=== PATIENT | female | born 1965 | race Caucasian/White ===

== ENCOUNTER 2024-12-26 09:25 | Emergency (ER) | payer OTHER, SELFPAY ==
[2024-12-26] VITALS (7 sets, daily range): BP systolic 130–181; BP diastolic 78–91; PULSE 71–84; RESP 16–19; TEMP 36.8; O2SAT 98–100
--- NOTE | ~2024-12-26 | CT_ITS ---
CT HEAD NON-CONTRAST Clinical History: dizziness Comparison: None Technique: Unenhanced axial images skull base to vertex Coronal, sagittal reformats CT images acquired with automatic exposure control for dose reduction DLP: 605 mGy-cm Findings: Sulci, ventricles: Unremarkable. No intracerebral hemorrhage. No evidence acute territorial infarct. No mass effect, midline shift. Bony calvarium intact. Visualized paranasal sinuses: Clear. Mastoid air cells: Clear. IMPRESSION: 1. No acute intracranial findings. Reviewed, dictated and finalized at location R.
--- NOTE | ~2024-12-26 | XR_ITS ---
Examination: XR chest 1V portable Clinical History: neuro Comparison: None Technique: Portable AP Findings: Heart size normal. Lungs clear. No acute bony abnormality. IMPRESSION: 1. No acute cardiopulmonary findings given portable technique. Reviewed, dictated and finalized at location R.
--- NOTE | 2024-12-26 09:31 | ECG_ITS ---
Test Date: 2024-12-26 09:37:14 Measurements Intervals [place] Rate: 80 P: 68 CT: 143 QRS: 52 QRSD: 89 T: 30 QT: 382 QTc: 441 Interpretive Statements SINUS RHYTHM NORMAL ECG No previous ECG available for comparison Electronically Signed On 12-26-2024 13:58:47 CDT by Samuel Barkley D.O.
[2024-12-26 09:42] LABS: Hematocrit 39.7 % (37.0-47.0); Hemoglobin 13.2 g/dL (12.0-15.0); Immature Granulocyte Percent A 0.5 % (0-0.5); Lymphocytes Absolute Auto 2.15 K/mm3 (0.9-3.2); Mean Corpuscular HGB Conc 33.2 g/dl (32-36); Mean Corpuscular Hemoglobin 30.8 pg (26-34); Mean Corpuscular Volume 92.5 fl (80-100); Nucleated Red Blood Cells Absolute Auto 0.000 K/mm3 (0.0-0.012); Nucleated Red Blood Cells Perc 0.0 % (0.0-0.2); Platelet Count Result 205 k/mm3 (150-375); Red Blood Count 4.29 M/mm3 (4.2-5.4); White Blood Count 6.3 K/mm3 (4.5-10.0)
[2024-12-26 09:54] LABS: INR 0.9; Partial Thromboplastin Time 24.0 Seconds (22.3-36.8); Prothrombin Time 11.9 Seconds (11.1-14.7)
--- OUTSIDE RECORDS SUMMARY | 2024-12-26 10:04 | XMS_ITS | Encounter Summary ---
Author Organization [facility] Address [facility] [place] [address] Care Team Providers Care Scrape Gatherer Name Role Phone Carlos Chahal MD Primary Care Prov ider Encounter Details Date Type Department Care Team (Late st Contact Info) Description 11/05/2023 MyChart Message Enc [facility] Family Medicine - [address], [address] [place] [phone] Carlos Chahal MD [address] [place] [address], Jose Miguel [address] [place] [id number] Test Results Social History Tobacco Use Types Packs/Day Years Used Date Smoking Tobacco: Former Cigarettes Smokeless Tobacco: Never Comments:I have never been a ddicted. 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 Question Answer Date of Assessment Author Status Little interest or pleasure in doing things Not at all 11/05/2023 1:33 PM Shira Luu MA Active Feeling down, depressed, or hopeless Not at all 11/05/2023 1:33 PM Fidelia Luu MA Active Patient Health Questionnaire-2 Score 0 11/05/2023 1:33 PM Juan Luu MA Active * Question Answer Date of Assessment Author Status Trouble falling or staying asleep, or sleeping too much Not at all 11/05/2023 1:33 PM Shira Luu MA Active Feeling tired or having little energy Not at all 11/05/2023 1:33 PM Shira Luu MA Active Poor appetite or overeating Not at all 11/05/2023 1:33 PM Shira Luu MA Active Feeling bad about yourself - or that you are a failure or have let yourself or your family down Not at all 11/05/2023 1:33 PM Shiar Luu MA Active Trouble concentrating on things, such as reading the newspaper or watching television Not at all 11/05/2023 1:33 PM Shira Luu MA Active Moving or speaking so slowly that other people could have noticed? Or the opposite - being so fidgety or restless that you have been moving around a lot more than usual. Not at all 11/05/2023 1:33 PM Shira Luu MA Active Thoughts that you would be better off or hurting yourself in some way Not at all 11/05/2023 1:33 PM Shira Luu MA Active Patient Health Questionnaire-9 Score 0 11/05/2023 1:33 PM Juan Luu MA Active * If you checked off any problems on this questionnaire so far, Question Answer Date of Assessment Author Status How difficult have these problems made it for you to do your work, take care of things at home, or get along with other people? Not difficult at all 11/05/2023 1:33 PM Emily Luu MA Active * Over the last 2 weeks, how often have you been bothered by any of the following problems? Question Answer Date of Assessment Author Status Feeling nervous, anxious, or on edge 0 11/05/2023 1:34 PM CDT Emily Vega MA Active Not being able to stop or control worrying 0 11/05/2023 1:34 PM CDT Emily Vega MA Active Worrying too much about different things 0 11/05/2023 1:34 PM CDT Emily Vega MA Active Trouble relaxing 0 11/05/2023 1:34 PM CDT Emily Vega MA Active Being so restless that it is hard to sit still 0 11/05/2023 1:34 PM CDT Shira Vega MA Active Becoming easily annoyed or irritable 0 11/05/2023 1:34 PM CDT Emily Vega MA Active Feeling afraid as if something awful might happen 0 11/05/2023 1:34 PM CDT Emily Vega MA Active AGUILAR-7 Total Score 0 11/05/2023 1:34 PM CDT Emily Rutherford MA Active documented as of this encounter Progress Notes * Carlos OLSON MD - 11/06/2023 9:38 AM CDT Thanks for looking into that for me! The levels are certainly elevated, but still not at a point where we would start medications at this time. There are other ways to help improve those numbers, such as diet, exercise, and weight loss. Which we discussed at the last appointment. If you have any other questions, please feel free to schedule another appointment. documented in this encounter Plan of Treatment Not on file documented as of this encounter Visit Diagnoses Not on filedocumented in this encounter Additional Health Concerns Assessment Noted Time PHQ-9 Depression Total Score: 0 11/05/19 24 1:33 PM CDT documented as of this encounter Care Teams Scrape Gatherer Relationship Specialty Start Date End Date Luis OLSON Carlos Malagon MD [address] [place] [address], [place] [id number] PCP - General FAMILY PRACTICE 11/05/23 documented as of this encounter
--- OUTSIDE RECORDS SUMMARY | 2024-12-26 10:05 | XMS_ITS | Encounter Summary ---
Author Organization [facility] Address [facility] [place] [address] Care Team Providers Care Inside Sales Coordinator Name Role Phone Carlos Chahal MD Primary Care Prov ider Encounter Details Date Type Department Care Team (Late st Contact Info) Description 04/23/2024 [place] Message Enc [facility] Family Medicine - [address], [address] [place] [phone] Carlos Chahal MD [address] [place] [address], Jose Miguel [address] [place] [phone] Probiotics Social History Tobacco Use Types Packs/Day Years Used Date Smoking Tobacco: Former Cigarettes Passive Smoke Exposure: Past Smokeless Tobacco: Never Comments:I have never been a ddicted. 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 Legal Sex Female 2:03 PM CDT Gender Identity Not on file Sexual Orientation Not on file documented as of this encounter Plan of Treatment Not on file documented as of this encounter Visit Diagnoses Not on filedocumented in this encounter Additional Health Concerns Assessment Noted Time PHQ-9 Depression Total Score: 0 04/05/19 25 7:51 AM CORONER FORENSIC TECHNICIAN documented as of this encounter Care Teams Inside Sales Coordinator Relationship Specialty Start Date End Date Luis VII, Carlos Malagon MD [address] [place] [address] PCP - General FAMILY PRACTICE 11/05/23 documented as of this encounter
--- OUTSIDE RECORDS SUMMARY | 2024-12-26 10:05 | XMS_ITS | Clinical Summary ---
Author Organization [facility] Address [address] [place] [address] Care Team Providers Care Hand Shoes Sewer Name Role Phone Roldan Mosher MD Primary Care Provider + Allergies Active Allergy Reactions Criticality Noted Date Comments Penicillins Angioedema High Pcmpkuw-Hun-Nyb Reductase Inhibitors Muscle pain Medium Medications citalopram (CeleXA) 40 mg tablet Take 1 tablet (40 mg total) by mouth daily 90 tablet 3 1 Active Additional Information Patient not taking.Reported on 09/04/2022 lisinopriL (PRINIVIL,ZESTR IL) 10 mg tablet Take 1 tablet (10 mg total) by mouth daily 90 tablet 3 1 Active valACYclovir (Valtrex) 500 mg tablet Take 1 tablet (500 mg total) by mouth daily 90 tablet 3 1 Active promethazine (PHENERGAN) 25 mg tablet Take 1 tablet (25 mg total) by mouth every 6 (six) hours as needed for nausea or vomiting 15 tablet 1 Active Additional Information Patient not taking.Reported on 09/04/2022 omeprazole (PriLOSEC) 40 mg capsule Take 1 capsule (40 mg total) by mouth daily 30 capsule 11 1 Active Additional Information Patient not taking.Reported on 09/04/2022 buPROPion XL (WELLBUTRIN XL) 150 mg 24 hr tablet Take 1 tablet (150 mg total) by mouth daily 3 Active doxycycline hyclate 100 mg capsule TAKE 1 CAPSULE BY MOUTH TWICE DAILY for 7 days 3 Active Active Problems Problem Noted Date Diagnosed Date Calculus of gallbladder with out cholecystitis without obstruction 05/11/2020 Assessment & Plan (05/11/2020 11:59 AM DESIGN SALES CONSULTANT): Will check EGD and then likely send to surgery Gastroesophageal reflux disease without esophagi tis 05/11/2020 Assessment & Plan (05/11/2020 12:00 PM DESIGN SALES CONSULTANT): Will have egd, start omeprazole. BMI 29.0-29.9,adult 12/07/2019 Assessment & Plan (04/19/2020 9:33 AM DESIGN SALES CONSULTANT): BMI is improving with lifestyle modifications At high risk for breast cancer 12/07/2019 Dense breast tissue on mammogram 12/07/2019 Postmenopausal 12/07/2019 Obesity (BMI 30-39.9) 05/06/2019 Assessment & Plan (05/06/2019 2:10 PM DESIGN SALES CONSULTANT): BMI Follow-up includes: not focus of today's visit; not discussed. Other chest pain 01/18/2019 Assessment & Plan (01/18/2019 9:45 AM DESIGN SALES CONSULTANT): Finish PPI, call if any sympotms. Musculoskeletal neck pain 06/08/2018 Assessment & Plan (06/08/2018 9:05 AM CDT): Steroid burst and taper, off work 2 days, call if not improving Annual physical exam 04/27/2018 Assessment & Plan (04/19/2020 9:29 AM DESIGN SALES CONSULTANT): Normal exam today Continue all medications as prescribed Labs pending Tdap updated Will reassess in one year Assessment & Plan (04/27/2018 3:39 PM DESIGN SALES CONSULTANT): Without abnormal findings Continue all medications as prescribed Return in one year and as needed Panic disorder without agoraphobia 05/15/2016 Overview (07/26/2016): Panic disorder [episodic paroxysmal anxiety] without agoraphobia Genital herpes simplex 05/15/2016 Overview (07/26/2016): Genital herpes simplex, unspecified site Assessment & Plan (05/06/2019 2:11 PM DESIGN SALES CONSULTANT): None seen on exam today. Controlled with valacyclovir Migraine without aura and responsive to treatmen t 01/16/2015 Overview (06/06/2016): Migraine without aura and without status migrainosus, not intractable Hypertension 11/20/2014 Overview (06/06/2016): Hypertension Assessment & Plan (04/19/2020 9:34 AM DESIGN SALES CONSULTANT): Hypertension is controlled Continue current treatment Assessment & Plan (01/18/2019 9:45 AM DESIGN SALES CONSULTANT): Continue current medications Assessment & Plan (03/02/2018 10:48 AM DESIGN SALES CONSULTANT): Hypertension is improving with treatment. Continue current treatment regimen. Blood pressure will be reassessed at the next regular appointment. Assessment & Plan (11/25/2017 11:17 AM CDT): Hypertension is worsening. Start lisinopril 10 mg, Take as directed. Warned about medication side effects. Blood pressure will be reassessed at the next regular appointment. Assessment & Plan (10/02/2017 10:52 AM CDT): Hypertension is worsening. Continue current treatment regimen. Blood pressure will be reassessed in 4 weeks In for biweekly BP's. Cervical radiculopathy 02/02/2014 Overview (06/05/2016): Cervical radiculopathy Assessment & Plan (10/02/2017 10:52 AM CDT): Will xray neck, start PT Degeneration of intervertebral disc of thoracic region 02/02/2014 Overview (06/05/2016): Degenerative disc disease, thoracic Alopecia 07/17/2013 Overview (06/06/2016): ALOPECIA NOS Anxiety state 07/17/2013 Overview (06/07/2016): ANXIETY STATE NOS Family history of breast cancer 09/24/2012 Overview (06/05/2016): Family history of breast cancer Headache 04/30/2012 Overview (06/06/2016): Persistent headaches Panic disorder 04/30/2012 Overview (06/07/2016): Panic disorder Assessment & Plan (01/18/2019 9:45 AM DESIGN SALES CONSULTANT): Continue current medications Assessment & Plan (03/02/2018 10:49 AM DESIGN SALES CONSULTANT): Psychological condition is improving with treatment. Continue current treatment regimen. Psychological condition will be reassessed at the next regular appointment. Assessment & Plan (11/25/2017 11:16 AM CDT): Psychological condition is improving with treatment. Continue current treatment regimen. Psychological condition will be reassessed at the next regular appointment. Resolved Problems Problem Noted Date Diagnosed Date Resolved Date Encounter to establish care 05/06/2019 04/19/2020 Assessment & Plan (05/06/2019 2:12 PM DESIGN SALES CONSULTANT): No complaints. Mammogram guidelines discussed- has been scheduled Pap smear guidelines discussed- obtained today (q3yrs or q5yrs c HPV until 65) Hematoma of left lower extremity 04/03/2017 04/26/2019 Assessment & Plan (04/03/2017 3:40 PM DESIGN SALES CONSULTANT): --resolving hematoma --reassurance provided should resolve on its own --reviewed s/s when appropriate to rtc; verbalized understanding Strep throat 01/11/2017 03/19/2017 Assessment & Plan (01/11/2017 10:26 AM DESIGN SALES CONSULTANT): Zpak for 5 days. OTC cough suppressant. Strategies discussed to avoid spreading. Good handwashing. Call or RTC as needed. Diarrhea 10/02/2016 03/19/2017 Assessment & Plan (10/02/2016 12:15 PM CDT): --discussed differentials with patient --cbc, cmp today --stool studies; culture and ova/parasites --cipro and flagyl as directed; warned against side effects --will review results and tx accordingly rtc if symptoms fail to improve or worsen Immunizations Immunization Administration Dates Next Due Influenza, Quadrivalent, Spl it, Preservative Free, Intramuscular 01/14/2020,01/01/2019,12/17/2017,12/15 Influenza, Split 01/11/2013,12/30/2011 Influenza, Trivalent, IM (MDV) 01/11/2013,2008,01/13/2008 Influenza, Unspecified 03/19/2017(Deferred: Breanne ent Refused) Pfizer SARS-CoV-2 Monovalent Vaccination (12+ Yrs) PURPLE 04/11/2020,03/21/2020 Tdap 04/19/2020 Surgical History Surgery Date Site/Laterality Comments SECTION section SECTION section CHOLECYSTECTOMY Medical History Medical History Date Comments Hx Other Medical Hemicrania Cont inua Hx Other Medical Chiari type 1 m alformation Anxiety disorder Anxiety Hx Other Medical Herpes simplex virus (HSV-1) Depression Depression Hx Other Medical Headache, migra ine Arthritis Hypertension Family History Medical History Relation Name Comments Thyroid cancer Cousin Asthma Daughter Diabetes Father Diabetes mellit us; Hearing loss Father Hypertension Father Hypertension; Kidney disease Father Skin cancer Father's Brother COPD Maternal Grandfather Arthritis Maternal Grandmother Stroke Maternal Grandmother Breast cancer Maternal Great-Grandmother Breast cancer Mother Cancer, breast ; Early Mother Other Mother healthy; Breast cancer Mother's Sister Relation Name Status Comments Cousin Alive Daughter Father Father's Brother Maternal Grandfather Maternal Grandmother Maternal Great-Grandmother Mother Alive Mother's Sister Social History Tobacco Use Types Packs/Day Years Used Date Smoking Tobacco: Never Smokeless Tobacco: Never Alcohol Use Standard Drinks/Week Comments Yes 2 (1 standard drink = 0.6 oz pur e alcohol) 10 PHQ-2 Answer Date Recorded PHQ-2 Total Score (If total score is 3 or more points, staff should administer the PHQ-9) 0 04/19/2020 Comments No Sex and Gender Information Value Date Recorded Sex Assigned at Not on file Legal Sex Female 6:57 PM DESIGN SALES CONSULTANT Gender Identity Not on file Sexual Orientation Not on file Obstetrics History Last Filed Vital Signs Vital Sign Reading Time Taken Comments Blood Pressure 124/82 09/04/2022 11:08 AM CDT Pulse 77 09/04/2022 11:08 AM CDT Temperature 36.2 C (97.2 F) 09/04/2022 11:08 AM CDT Respiratory Rate 16 09/04/2022 11:0 8 AM CDT Oxygen Saturation 98% 09/04/2022 11: 08 AM CDT Inhaled Oxygen Concentration - - Weight 77.9 kg (171 lb 12.8 oz) 023 11:08 AM CDT Height 165.1 cm (5' 5) 09/04/2022 11:0 8 AM CDT Body Mass Index 28.59 09/04/2022 11:08 AM CDT Plan of Treatment Health Maintenance Due Date Last Done Comments Hepatitis C Screening 1965 Hepatitis B Screening 10/21/1985 Zoster Vaccine (1 of 2) 10/21/2017 Cervical Cancer Screening 05/05/2020 05/06/2019, 07/2019 Breast Cancer Screening-Mammogram 09/21/2020 09/22/2019, 04/13/2018, 03/26/2017, Additional history exists Depression Screening 04/19/2021 04/19/2020, 04/26/2019, 01/18/2019, Additional history exists Regular Well Visit/Exam 18-64 04/19/2021 04/19/2020, 05/06/2019, 04/26/2019, Additional history exists Colon Cancer Screening-DNA Stool 05/03/2022 05/04/2019, 05/04/2019 Covid-19 Vaccine ( season) 2024 04/11/2020, 03/21/2020 Influenza Vaccine (#1) 2024 , 01/01/2019, 12/17/2017, Additional history exists DTaP/Tdap/Td Vaccine (2 - Td or Tdap) 04/19/2030 04/19/2020 Pneumococcal vaccine <65 Aged Out No longer eligible based on patient's age to complete this topic Procedures Procedure Name Priority Date/Time Associated Diagnosis Comments SCREENING MAMMOGRAM BILATERAL W HOLDEN Schedule Routine, Read Routine (OP Routine) 09/22/2019 2:16 PM CDT Visit for screening mammogram PAP ONLY Routine 05/06/2019 HM DNA STOOL Routine 05/04/2019 from Last 3 Months or Most Recently Relevant to Health Maintenance Results * Screening Mammogram Bilateral W Holden (09/22/2019 2:16 PM CDT) Anatomical Region Laterality Modality Breast Bilateral Mammography 09/22/2019 Impressions 09/22/2019 3:10 PM CDT There is no mammographic evidence of malignancy. A return to screening mammogram in 1 year is recommended. Computer Aided Detection (CAD) version 7.2 was used in the interpretation of this study. 3-dimensional tomosynthesis with 2-dimensional reconstructed digital imaging was obtained. BI-RADS Category 1: Negative This report has been dictated and electronically signed by ARRON JIM MD on 09/22/2019 15:10:14 Narrative 09/22/2019 3:10 PM CDT [place], [place] BRISA LUNA : 1965 [facility] Account: [id number] ATTENDING PHYSICIAN: SELF SCREENING MAMMOGRAM, ORDERING PHYSICIAN: SELF SCREENING MAMMOGRAMMD TECHNOLOGIST: DONAVON KAUFFMAN EXAM: Bilateral Digital Screening Mammogram With Tomosynthesis - 09/22/2019 HISTORY: Patient is a 53 year old female and is seen for screening. The patient has the following family history of breast cancer: mother, at age 56, breast cancer; great grandmother, breast cancer, maternal and maternal aunt, breast cancer. N CI within lifetime: 17.2% T carsoner-Cuzick: 17.2% B RCA1: 0.3% B RCA2: 0.7% FILMS COMPARED: The present examination has been compared to prior imaging studies performed at [facility] on 03/26/2017 and 04/13/2018. MAMMOGRAM FINDINGS: Bilateral CC tomosynthesis and C-view images and bilateral MLO tomosynthesis and C-view images were obtained. Computer Aided Detection of the 2D and/or C-view images was performed. There are scattered fibroglandular densities. There are no suspicious masses, calcifications or other abnormalities. Digital breast tomosynthesis was performed and reviewed as a part of this examination. Procedure Note Arron Jim MD - 09/22/2019 [place], [place] BRISA LUNA : 1965 [facility] Account: [id number] ATTENDING PHYSICIAN: SELF SCREENING MAMMOGRAM, ORDERING PHYSICIAN: SELF SCREENING MAMMOGRAM, TECHNOLOGIST: DONAVON KAUFFMAN EXAM: Bilateral Digital Screening Mammogram With Tomosynthesis - 09/22/2019 HISTORY: Patient is a 53 year old female and is seen for screening. Thepatient has the following family history of breast cancer: mother, at age 56, breast cancer; great grandmother, breast cancer, maternal and maternal aunt, breast cancer. N CI within lifetime: 17.2% T carsoner-Cuzick: 17.2% B RCA1: 0.3% B RCA2: 0.7% FILMS COMPARED: The present examination has been compared to prior imaging studies performed at [facility] on 03/26/2017 and 04/13/2018. MAMMOGRAM FINDINGS: Bilateral CC tomosynthesis and C-view images and bilateral MLO tomosynthesis and C-view images were obtained. Computer Aided Detectionof the 2D and/or C-view images was performed. There are scattered fibroglandular densities. There are no suspicious masses, calcifications or other abnormalities. Digital breast tomosynthesis was performed and reviewed as a part ofthis examination. IMPRESSION: There is no mammographic evidence of malignancy. A return to screening mammogram in 1 year is recommended. Computer Aided Detection (CAD) version 7.2 was used in theinterpretation of this study. 3-dimensional tomosynthesis with 2-dimensional reconstructed digital imaging was obtained. BI-RADS Category 1: Negative This report has been dictated and electronically signed by ARRON JIM MD on 09/22/2019 15:10:14 us Self Screening Mammogram IMG MAMMO PROCEDURES Fi nal Result * Pap Only (05/06/2019) Swab 05/06/2019 us Stacey Dennis NP LAB CYTOLOGY ORDERABLES Final Result EXTERNAL LAB * DNA STOOL (05/04/2019) COLOGUARD Normal us Historical Provider HEALTH MAINTENANCE Final Result from Last 3 Months or Most Recently Relevant to Health Maintenance Insurance [facility] H[facility]/PPO Address: [facility] [address] [place] [address] [facility] HMO/PPO Address: [address] [address] [place] [address] [place] [address] [employer] [facility] H[employer]/PPO Address: [address] [address] [place] [address] [facility]/PPO Address: [address] [address] [place] [address] Care Teams Hand Shoes Sewer Relationship Specialty Start Date End Date Roldan Mosher MD [address] [place] [address] PCP - General 05/31/16
--- OUTSIDE RECORDS SUMMARY | 2024-12-26 10:05 | XMS_ITS | Encounter Summary ---
Author Organization [facility] Address [facility] [place] [address] Care Team Providers Care Cellar Hand Name Role Phone Carlos Chahal MD Primary Care Prov ider Encounter Details Date Type Department Care Team (Late st Contact Info) Description 03/15/2024 MyChart Message Enc [facility] Family Medicine - [address], [address] [place] [phone] Carlos Chahal MD [address] [place] [address], Jose Miguel [address] [place] [phone] Follow up to appointment Social History Tobacco Use Types Packs/Day Years [...] Date Recorded Patient Health Questionnaire-2 Score 0 02/20/2024 Comments No Sex and Gender Information Value Date Recorded Sex Assigned at Female 04/01/2024 11:55 AM MICROBIAL SPECIALIST Legal Sex Female 2:03 PM CDT Gender Identity Not on file Sexual Orientation Not on file documented as of this encounter Plan of Treatment Not on file documented as of this encounter Visit Diagnoses Not on filedocumented in this encounter Additional Health Concerns Assessment Noted Time PHQ-9 Depression Total Score: 0 02/20/20 24 1:22 PM MICROBIAL SPECIALIST documented as of this encounter Care Teams Cellar Hand Relationship Specialty Start Date End Date Luis VII, Carlos Malagon MD [address] [place] [address] PCP - General FAMILY PRACTICE 11/05/23 documented as of this encounter
--- OUTSIDE RECORDS SUMMARY | 2024-12-26 10:05 | XMS_ITS | Encounter Summary ---
Author Organization [facility] Address [facility] [place] [address] Care Team Providers Care Vacuum Pan Operator Name Role Phone Carlos Chahal MD Primary Care Prov ider Encounter Details Date Type Department Care Team (Late st Contact Info) Description 09/06/[address] 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 Wish to be (Past 1 Month) No 09/07/2024 4:54 AM CDT Nilsa Mae RN Acti ve 2. Non-Specific Active Suicidal Thoughts (Past 1 Month) No 09/07/2024 4:54 AM CDT Nilsa Mae RN Acti ve 6. Suicidal Behavior (Lifetime) No 09/07/2024 4:54 AM CDT Nilsa Mae RN Acti ve documented as of this encounter Plan of Treatment Not on file documented as of this encounter Visit Diagnoses Not on filedocumented in this encounter Additional Health Concerns Assessment Noted Time PHQ-9 Depression Total Score: 0 04/05/19 25 7:51 AM TIME CYCLE OPERATOR documented as of this encounter Care Teams Vacuum Pan Operator Relationship Specialty Start Date End Date Luis VII, Carlos Malagon MD [address] [place] [id number] PCP - General FAMILY PRACTICE 11/05/23 documented as of this encounter
--- OUTSIDE RECORDS SUMMARY | 2024-12-26 10:05 | XMS_ITS | Encounter Summary ---
Author Organization [facility] Address [facility] [place] [address] Care Team Providers Care Citizenship Instructor Name Role Phone Carlos Chahal MD Primary Care Prov ider Encounter Details Date Type Department Care Team (Late st Contact Info) Description 08/12/2024 [place] Message Enc [facility] Family Medicine - [address], [address] [place] [phone] Carlos Chahal MD [facility], Jose Miguel [address] [place] [phone] Question Social History Tobacco Use Types Packs/Day Years [...] Sex Assigned at Female 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/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
--- OUTSIDE RECORDS SUMMARY | 2024-12-26 10:05 | XMS_ITS | Encounter Summary ---
Author Organization [facility] Address [address] [place] [address] Phone Care Team Providers Care Storage Solutions Architect Name Role Phone Roldan Mosher MD Primary Care Provider + Encounter Details Date Type Department Care Team (Late st Contact Info) Description 04/22/2017 Orders Only [facility] ProviderPrashanth MD [address] [place] [id number] Social History Tobacco Use Types Packs/Day Years Used Date Smoking Tobacco: Never Smokeless Tobacco: Never Alcohol Use Standard Drinks/Week Comments Yes 0 (1 standard drink = 0.6 oz pur e alcohol) Comments Unknown Sex and Gender Information Value Date Recorded Sex Assigned at Not on file Legal Sex Female 6:57 PM METAL BONDING HELPER Gender Identity Not on file Sexual Orientation Not on file documented as of this encounter Plan of Treatment Not on file documented as of this encounter Procedures Procedure Name Priority Date/Time Associated Diagnosis Comments DISCHARGE LABORATORY CUMULATIVE REPORT 04/22/2017 12:00 AM METAL BONDING HELPER documented in this encounter Results * DISCHARGE LABORATORY CUMULATIVE REPORT (04/22/2017 12:00 AM METAL BONDING HELPER) Narrative 04/22/2017 12:00 AM METAL BONDING HELPER Ordered by an unspecified provider. Historical Provider LAB BLOOD ORDERABLES Sona l Result documented in this encounter Visit Diagnoses Not on filedocumented in this encounter Additional Health Concerns Infection Onset Date Last Indicated Resolved Time COVID: Suspected 10/25/2019 10/26/2019 10/26/2019 6:16 PM CDT Respiratory Infection (MARKOS), contact + droplet Comment:Automatically added due to negative COVID-19 result. 10/26/2019 10/26/2019 11/09/2019 3:0 7 AM CDT COVID: Suspected 03/15/2020 03/15/2020 03/29/2020 3:07 AM METAL BONDING HELPER documented as of this encounter Care Teams Storage Solutions Architect Relationship Specialty Start Date End Date Roldan Mosher MD [address] [place] [address] PCP - General 05/31/16 documented as of this encounter
--- OUTSIDE RECORDS SUMMARY | 2024-12-26 10:05 | XMS_ITS | Clinical Summary ---
Author Organization [facility] Address [address] [place] [address] Care Team Providers Care All Round Logger Name Role Phone Luis Felipe Chahal MD Primary Care Prov ider Allergies Active Allergy Reactions Criticality Noted Date Comments Penicillins Angioedema,Hives,Itching,Rash High 11/04 Statins Myalgias Medium 04/05/2024 Medications DULoxetine (CYMBALTA) 20 MG capsuleIndicatio ns:Anxiety TAKE 1 CAPSULE(20 MG) BY MOUTH DAILY 30 capsule 5 03/09/19 25 Active fluticasone propionate (FLONASE) 50 MCG/ACT nasal sprayIndications :Eustachian tube dysfunction, left SHAKE LIQUID AND USE 2 SPRAYS IN EACH NOSTRIL DAILY 16 g 1 07/28/19 25 Active benzonatate (TESSALON) 200 MG capsuleIndicatio ns:Post-viral cough syndrome TAKE 1 CAPSULE(200 MG) BY MOUTH THREE TIMES DAILY NEEDED FOR COUGH 20 capsule 08/26/19 25 Active lisinopril (PRINIVIL) 10 MG tabletIndication s:Primary hypertension TAKE 1 TABLET(10 MG) BY MOUTH DAILY 90 tablet 1 09/07/19 25 Active ondansetron (ZOFRAN) 4 MG tablet Take 1 tablet (4 mg total) by mouth every 8 (eight) hours as needed for Nausea. 20 tablet 09/08/19 25 Active buPROPion XL (WELLBUTRIN XL) 150 MG 24 hr tabletIndication s:Anxiety TAKE 1 TABLET(150 MG) BY MOUTH DAILY 30 tablet 2 12/14/19 25 Active mirabegron ER (MYRBETRIQ) 25 MG 24 hr tabletIndication s:Urge incontinence TAKE 1 TABLET(25 MG) BY MOUTH DAILY 90 tablet 12/24/19 25 Active buPROPion XL (WELLBUTRIN XL) 150 MG 24 hr tabletIndication s:Anxiety Take 1 tablet (150 mg total) by mouth daily. 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 Controlled. Previously saw therapist 10 years ago, however not currently seeing a therapist and does not think that she needs one at this time - GAD7 score of 0, PHQ-9 score of 0 - States significant distress and impairment in social / occupational aspects of life - Sxs not attributable to substance use, medication side effects, or other mental / medical disorders - D/w pt that increasing physical activity can alleviate some sxs - Current medications: Wellbutrin XL 150 mg p.o. daily, duloxetine 30 mg p.o. daily -Decrease duloxetine to 20 mg p.o. daily -Plan to fully discontinue duloxetine, and then work on Wellbutrin. Encounters Date Type Department Care Team Description 12/24/2024 Orders Only [facility] [address] [place] [address] Raman Hogan MD 12/23/2024 11:45 AM CDT - 12/23/2024 11:59 PM CDT Hospital Encounter [facility] [place] [address] LuisLuis Felipe Randolph MD Ochieng, Frederick O, MD Discharge Disposition: Home or Self Care (Routine Discharge) 12/23/2024 Travel 12/10/2024 Telephone [facility] [address] [place] [address] Yael Orr, RMA Schedule Test (Reg stress) 12/02/2024 [facility] [address], [address] [place] [address] [phone] Luis Felipe Chahal MD 11/26/2024 Orders [facility] [address], [address] [place] [address] [phone] Luis Felipe Chahal MD 11/20/2024 Results Follow-Up [facility] [address], [address] [place] [address] [phone] Luis Felipe Chahal MD COMPREHENSIVE METABOLIC PANEL, CBC W/DIFF AUTOMATED, IRON SAT PANEL (IRON,IBC,%SAT), Additional followed-up results: 3 11/19/2024 9:36 AM CDT - 11/19/2024 11:59 PM CDT Hospital Encounter [facility] [place] [address] Luis Felipe Chahal MD Discharge Disposition: Home or Self Care (Routine Discharge) 11/19/2024 8:40 AM CDT Office Visit [facility] [address], [address] [place] [address] [phone] Luis Felipe Chahal MD Headache (Pt c/o headache and dizziness/) 11/19/2024 Travel 11/09/2024 Telephone [facility] [address], [address] [place] [address] [phone] Luis Felipe Chahal MD Appointment Request; Problem 10/21/2024 Orders Only [facility] [address], [address] [place] [address] [phone] Luis Felipe Chahal MD 10/07/2024 Orders Only [facility] - [place] [address], [address] [place] [phone] Luis Felipe Chahal MD 10/01/2024 12:49 PM CDT - 10/01/2024 11:59 PM CDT Hospital Encounter [facility] Mammography [address] [place] [address] DermErmelinda casas FNP Discharge Disposition: Home or Self Care (Routine Discharge) 10/01/2024 Travel from Last 3 Months Immunizations Immunization Administration Dates Next Due Fluzone (IIV3, Trivalent, 0. 5 ML Prefilled Syringe) 05/13/2024 Influenza (Generic) 01/11/2013, 2,01/20/2009,2007 Influenza Adult (Generic) 01/14/2020,03/2018,12/17/2017,2014 Shingrix 05/13/2024 Tdap (Generic) 04/19/2020 Family History Medical History Relation Comments Diabetes Father Hypertension Father Cancer Maternal Aunt Breast Cancer Cancer Maternal Grandmother Breast Canc er Cancer Mother /Breast Cancer Drug Abuse Son Relation Status Comments Father Maternal Aunt Maternal Grandmother Mother Son Social History Tobacco Use Types Packs/Day Years Used Date Smoking Tobacco: Former Cigarettes Passive Smoke Exposure: Past Smokeless Tobacco: Never Tobacco Cessation:Counseling Given: No Comments:I have never been addicted. I use to smoke socially, mostly at parties or around friends Alcohol Use Standard Drinks/Week Comments Yes 10 (1 standard drink = 0.6 oz pure alcohol) I usually have a few drinks on the weekends PHQ-2 Answer Date Recorded Patient Health Questionnaire-2 Score 0 04/05/2024 Comments No Sex and Gender Information Value Date Recorded Sex Assigned at Female 04/01/2024 11:55 AM RECONCILIATION ANALYST Legal Sex Female 2:03 PM CDT Gender Identity Not on file Sexual Orientation Not on file Last Filed Vital Signs Vital Sign Reading Time Taken Comments Blood Pressure 138/90 11/19/2024 8:37 AM CDT Pulse 81 11/19/2024 8:37 AM CDT Temperature 36.4 C (97.6 F) 11/19/2024 8:37 AM CDT Respiratory Rate 18 11/19/2024 8:37 AM CDT Oxygen Saturation 97% 11/19/2024 8:37 AM CDT Inhaled Oxygen Concentration - - Weight 75.2 kg (165 lb 12.8 oz) 025 11:00 AM CDT Height 168.9 cm (5' 6.5) 11/19/2024 8:37 AM CDT Body Mass Index 26.36 09/17/2024 11:00 AM CDT Plan of Treatment Health Maintenance Due Date Last Done Comments Hepatitis C 10/21/1985 Hepatitis B Vaccines (1 of 3 - 19+ 3-dose series) 10/21/1986 Cervical Cancer Screening Pap with HPV Testing (Age 30 to 64) Every 5 Years 10/21/1997 Pneumococcal Vaccine: 50+ Years (1 of 1 - PCV) 10/21/2017 Zoster Vaccines (2 of 2) 07/08/2024 05/13/2024 COVID-19 Vaccine (3 - 2024- season) 2024 04/11/2020, 03/21/2020 Annual Physical 11/04/2024 11/05/2023 Influenza Adult (#1) 2024 05/13/2024, 01/14/2020, 01/01/2019, Additional history exists Mammogram Screening 10/01/2026 10/01/2024, 11/18/2023, 10/10/2022, Additional history exists Cervical Cancer Screening Pap Smear (Age 30 to 64) Every 3 Years 01/14/2027 01/15/2024 Cervical Cancer Screening with HPV 01/14/2027 DTaP, Tdap and Td Vaccines (2 - Td or Tdap) 04/19/2030 04/19/2020 Colorectal Cancer Screening Colonoscopy (10 Years) 06/25/2032 06/25/2022 PHQ-2 (Physician [place]) Completed 04/05/2024 Hepatitis A Vaccines Aged Out No long er eligible based on patient's age to complete this topic Meningococcal B Vaccine Aged Out No l onger eligible based on patient's age to complete this topic Meningococcal Vaccine Aged Out No anika hunter eligible based on patient's age to complete this topic RSV Immunizations Under 20 Months Aged Out No longer eligible based on patient's age to complete this topic Procedures Procedure Name Priority Date/Time Associated Diagnosis Comments STRESS TEST ONLY, EXERCISE Routine 12/23/2024 2:37 PM CDT Exertional dyspnea TSH W/REFLEX Routine 11/19/2024 9:41 AM CDT Dizziness LIPID PANEL Routine 11/19/2024 9:41 AM CDT Dizziness FERRITIN Routine 11/19/2024 9:41 AM CDT Dizziness IRON SAT PANEL (IRON,IBC,%SAT) Routine 11/19/2024 9:41 AM CDT Dizziness CBC W/DIFF AUTOMATED Routine 11/19/2024 9:41 AM CDT Dizziness COMPREHENSIVE METABOLIC PANEL Routine 11/19/2024 9:41 AM CDT Dizziness ELECTROCARDIOGRAM (NON [place]MARK ACQUIRED) Routine 11/19/2024 9:14 AM CDT Dizziness US BREAST RT BIRAD LTD Routine 1:28 PM CDT Unspecified lump in the right breast, upper outer quadrant MG DIAG W SERGEY BILAT DIGI Routine 2024 1:12 PM CDT Unspecified lump in the right breast, upper outer quadrant COLONOSCOPY GENERIC (SCAN ORDER) 06/25/2022 from Last 3 Months or Most Recently Relevant to Health Maintenance Results * STRESS TEST ONLY, EXERCISE (12/23/2024 2:37 PM CDT) 12/23/2024 2:37 PM CDT Narrative [facility] - 12/23/2024 4:04 PM CDT STRESS TEST TRACING ONLY Pat.Name: BRISA LUNA Pat.ID: [id number] St.Date: 12/23/2024 Exam Time: 2:37:00 PM Study Type:BRIAN NC STRESS TEST TRACING ONLY Height: 66.5 in Weight: 165 lb BSA: 1.85 m2 Age: 8 1965,59Y Sex: F Pat. Stat.:Outpatient Reason for Study:Shortness of breath History / Clinical:Anxiety, Hypertension Race: W Surgery: None Medications:Wellbutrin, Cymbalta, Flonase, Prinivil, Mirabegron ++++++++++++++++++++++++++++++++++++ SUMMARY: ++++++++++++++++++++++++++++++++++++ Stress conclusion: 1. Clinically negative. 2. Electrocardiographically positive treadmill test for ischemia. 1mm ST depression inferior and lateral leads. 3. Adequate exercise capacity. 4. Blood pressure response was normal. 5. Pérez Treadmill Score is 4, which indicates moderate risk. ++++++++++++++++++++++++++++++++++++ STRESS: ++++++++++++++++++++++++++++++++++++ Baseline Vital Signs: ECG: Normal sinus rhythm HR: 73 bmp Rest BP: 134/80 Treadmill Test Protocol: Helio Duration: 09:00 min:sec Max. Workload (METS): 10.3 Stress Test Results: Max HR: 159 bmp Target HR: 163 bmp % Target: 98 % Max BP: 165/86 Max RPP: [id number] Symptoms and Complications: Terminated: Attainment of adequate heart rate, Shortness of breath Symptoms: Shortness of breath, Dizziness Stress ECG Interp: Sinus tachycardia <Electronic Signature> 12/23/2024 04:04 PM aRman Hogan M.D. Procedure Note Raman Hogan MD - 12/23/2024 STRESS TEST TRACING ONLY Pat.Name: BRISA LUNA Pat.ID: [id number] St.Date: 12/23/2024 Exam Time: 2:37:00 PM Study Type:BRIAN NC STRESS TEST TRACING ONLY Height: 66.5 in Weight: 165 lb BSA: 1.85 m2 Age: 8 1965,59Y Sex: F Pat. Stat.:Outpatient Reason for Study:Shortness of breath History / Clinical:Anxiety, Hypertension Race: W Surgery: None Medications:Wellbutrin, Cymbalta, Flonase, Prinivil, Mirabegron ++++++++++++++++++++++++++++++++++++ SUMMARY: ++++++++++++++++++++++++++++++++++++ Stress conclusion: 1. Clinically negative. 2. Electrocardiographically positive treadmill test for ischemia. 1mm ST depression inferior and lateral leads. 3. Adequate exercise capacity. 4. Blood pressure response was normal. 5. Pérez Treadmill Score is 4, which indicates moderate risk. ++++++++++++++++++++++++++++++++++++ STRESS: ++++++++++++++++++++++++++++++++++++ Baseline Vital Signs: ECG: Normal sinus rhythm HR: 73 bmp Rest BP: 134/80 Treadmill Test Protocol: Helio Duration: 09:00 min:sec Max. Workload (METS): 10.3 Stress Test Results: Max HR: 159 bmp Target HR: 163 bmp % Target: 98 % Max BP: 165/86 Max RPP: [id number] Symptoms and Complications: Terminated: Attainment of adequate heart rate, Shortness of breath Symptoms: Shortness of breath, Dizziness Stress ECG Interp: Sinus tachycardia <Electronic Signature> 12/23/2024 04:04 PM Raman Hogan M.D. Luis Felipe OLSON MD CV CARDIAC SERVICE S ORDERABLES Final Result [facility] * TSH W/REFLEX (11/19/2024 9:41 AM CDT) TSH 1.280 0.358 - 3.74 uIU/ML 11/19/2024 11:00 AM CDT [facility] Comment: HIGH DOSES OF BIOTIN MAY INTERFERE WITH THIS TEST RESULT. CORRELATION TO CLINICAL HISTORY AND PRESENTATION RECOMMENDED. FREE T4 NOT INDICATED 11/19/2024 9:41 AM CDT Luis Felipe OLSON MD LABORATORY Fi nal Result Performing Organization Address City[facility]/ZIP Co de Phone Number [facility] [address] [place] [id number], [place] [phone] * IRON SAT PANEL (IRON,IBC,%SAT) (11/19/2024 9:41 AM CDT) Pathologist [facility] IRON 93 50.0 - 170.0 MCG/DL 11/19/2024 1:15 PM CDT [facility] IRON BINDING CAPACITY 361 250 - 450 MCG/DL 11/19/2024 1:15 PM CDT [facility] IRON SATURATION 26 20 - 55 % 1:15 PM CDT [facility] 11/19/2024 9:41 AM CDT Luis Felipe OLSON MD LABORATORY Fi nal Result [facility] [address] [place] [address], [place] [phone] * (ABNORMAL) COMPREHENSIVE METABOLIC PANEL (11/19/2024 9:41 AM CDT) GLUCOSE 104(H) 70 - 99 MG/DL 11/19/2024 11:00 AM T [facility] BUN 21(H) 7 - 18 MG/DL 11/19/2024 11:00 AM T [facility] CREATININE S/P/B 0.84 0.55 - 1.02 MG/DL 11/19/2024 11:00 AM T [facility] SODIUM S/P/B 138 136 - 145 MMOL/L 11/19/2024 11:00 AM T [facility] POTASSIUM S/P/B 4.1 3.5 - 5.1 MMOL/L 11/19/2024 11:00 AM T [facility] CHLORIDE S/P/B 106 97 - 115 MMOL/L 11/19/2024 11:00 AM T [facility] CO2 27.9 21 - 32 MMOL/L 11/19/2024 11:00 AM T [facility] CALCIUM S/P/B 9.0 8.5 - 10.1 MG/DL 11/19/2024 11:00 AM T [facility] BILIRUBIN TOTAL S/P/B 0.5 0.2 - 1.2 MG/DL 11/19/2024 11:00 AM [facility] Comment: THIS ASSAY IS NOT RECOMMENDED FOR PATIENTS UNDERGOING TREATMENT WITH ELTROMBOPAG DUE TO THE POTENTIAL FOR FALSELY ELEVATED RESULTS. TOTAL PROTEIN S/P/B 7.4 6.4 - 8.2 G/DL 11/19/2024 11:00 AM T [facility] ALBUMIN S/P/B 3.7 3.4 - 5.0 G/DL 11/19/2024 11:00 AM T [facility] AST 16 15 - 37 U/L 11/19/2024 11:00 AM T [facility] ALT 28 14 - 55 U/L 11/19/2024 11:00 AM CDT [facility] ALKALINE PHOSPHATASE S/P/B 64 50 - 136 U/L 11/19/2024 11:00 AM CDT [facility] ANION GAP 4.1 2 - 10 MMOL/L 11/19/2024 11:00 AM CDT [facility] BUN CREATININE RATIO 25.1 6 - 26 11/19/2024 11:00 AM CDT [facility] A/G RATIO 1.0 1.0 - 2.0 RATIO 11/19/2024 11:00 AM CDT [facility] GFR ESTIMATE 81(L) >90 ML/MIN/1.7 3 M2 11/19/2024 11:00 AM CDT [facility] Comment: NOTE: eGFR is not calculated for patients <18 years of age or gender unknown. This is an estimated GFR calculation using the new CKD EPI creatinine equation without race and so does not require a correction factor for race. This estimated GFR should not be used for calculating drug doses. 11/19/2024 9:41 AM CDT Luis Felipe OLSON MD LABORATORY Fi nal Result [facility] [address] [place] [id number], * (ABNORMAL) LIPID PANEL (11/19/2024 9:41 AM CDT) CHOLESTEROL 200(H) <200 MG/DL 11/19/2024 11:00 AM CDT [facility] TRIGLYCERIDES 108 <150 MG/DL 11/19/2024 11:00 AM CDT [facility] HDL 74 >40.0 MG/DL 11/19/2024 11:00 AM CDT [facility] LDL (CALCULATED) 104(H) <100 MG/DL 11/19/2024 11:00 AM CDT [facility] Comment:CALCULATED USING THE FRIEDEWALD EQUATION NON HDL CHOLESTEROL 126 <130 MG/DL 11/19/2024 11:00 AM CDT [facility] CHOL/HDL RATIO 2.7 0.0 - 4.5 11/19/2024 11:00 AM CDT [facility] VLDL CALCULATION 22 5 - 55 MG/DL 11/19/2024 11:00 AM CDT [facility] LIPID INTERPRETATION 11/19/2024 11:00 AM CDT [facility] Comment: [facility] CONCENSUS REPORT RECOMMENDATIONS: ADULT CHILD LOW RISK: CHOLESTEROL <200 <170 TRIGLYCERIDE <150 --- HDL >=60 --- LDL <100 <110 BORDERLINE: CHOLESTEROL 200-239 170-199 TRIGLYCERIDE 150-199 --- HDL 40-59 --- LDL 100-159 110-129 HIGH RISK: CHOLESTEROL >=240 >=200 TRIGLYCERIDE >=200 --- HDL <40 --- LDL >=160 >=130 11/19/2024 9:41 AM CDT us Luis Felipe OLSON MD LABORATORY Fi nal Result [facility] [address] [place] [address], [place] [phone] * (ABNORMAL) CBC W/DIFF AUTOMATED (11/19/2024 9:41 AM CDT) WBC 5.00 4.5 - 11.0 x10'3/uL 11/19/2024 9:53 AM CDT [facility] RBC 4.01(L) 4.20 - 5.40 x10'6/uL 11/19/2024 9:53 AM CDT [facility] HGB 12.4 12.0 - 16.0 G/DL 11/19/2024 9:53 AM CDT [facility] HCT 36.7(L) 38.0 - 48.0 % 11/19/2024 9:53 AM CDT [facility] MCV 91.5 81.0 - 99.0 FL 11/19/2024 9:53 AM CDT [facility] MCH 30.9 27.0 - 31.0 PG 11/19/2024 9:53 AM CDT [facility] MCHC 33.8 32.0 - 36.0 G/DL 11/19/2024 9:53 AM CDT [facility] RDW 13.1 11.5 - 14.5 % 11/19/2024 9:53 AM CDT [facility] PLT 180 130 - 400 x10'3/uL 11/19/2024 9:53 AM CDT [facility] MPV 9.1(L) 9.3 - 12.2 FL 11/19/2024 9:53 AM CDT [facility] DIFFERENTIAL TYPE AUTOMATED DIFFERENTIAL 11/19/2024 9:53 AM CDT [facility] NEUTROPHILS % 49.6 % 11/19/2024 9:53 AM CDT [facility] LYMPHOCYTES % 33.2 % 11/19/2024 9:53 AM CDT [facility] MONOCYTES % 9.4 % 11/19/2024 9:53 AM CDT [facility] EOSINOPHILS 7.2 % 11/19/2024 9:53 AM CDT [facility] BASOPHILS 0.4 % 11/19/2024 9:53 AM CDT [facility] IMMATURE GRANS % 0.2 % 11/20/19 9:53 AM CDT [facility] ABS. NEUTROPHILS 2.48 1.80 - 7.70 x10'3/uL 11/19/2024 9:53 AM CDT [facility] ABS. LYMPHOCYTES 1.66 1.00 - 4.80 x10'3/uL 11/19/2024 9:53 AM CDT [facility] ABS. MONOCYTES 0.47 0.24 - 0.86 x10'3/uL 11/19/2024 9:53 AM CDT [facility] ABS. EOSINOPHILS 0.36 0.04 - 0.36 x10'3/uL 11/19/2024 9:53 AM CDT [facility] ABS. BASOPHILS 0.02 0.01 - 0.08 x10'3/uL 11/19/2024 9:53 AM CDT [facility] ABS. IMMATURE GRANULOCYTES 0.01 0.00 - 0.49 x10'3/uL 11/19/2024 9:53 AM CDT [facility] 11/19/2024 9:41 AM CDT Luis Felipe OLSON MD LABORATORY Fi nal Result Performing Organization Address [facility]/ZIP Co de Phone Number [place] [address], [place] [phone] * FERRITIN (11/19/2024 9:41 AM CDT) FERRITIN 58.4 8.0 - 388.0 NG/ML 11/19/2024 1:23 PM CDT [facility] 11/19/2024 9:41 AM CDT Luis Felipe OLSON MD LABORATORY Fi nal Result [facility] [address] [place] [address], * EKG WELCHALLEN ACQUIRED (11/19/2024 9:14 AM CDT) 11/19/2024 9:14 AM CDT Narrative [facility] - 12/06/2024 1:38 PM CDT [facility] [address] [place] [address] Test Date: 2024-11-19 Pat Name: BRISA JEREMY Department: 171 Room: Gender: Female 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: : 1965 Requested By: LUIS FELIPE SMITH VII Order Number: [id number] Reading MD: Luis Felipe Smith Vii Measurements Intervals [place] Rate: 76 P: 63 NE: 147 QRS: 56 QRSD: 79 T: 35 QT: 392 QTc: 441 Interpretive Statements SINUS RHYTHM Procedure Note Luis Felipe Chahal MD - 12/06/2024 [facility] [address] [place] [address] Test Date: 2024-11-19 Pat Name: BRISA LUNA Department: 171 Room: Gender: Female 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: : 1965 Requested By: LUIS FELIPE OCHOA Order Number: [id number] Reading MD: Luis Felipe Ochoa Measurements Intervals [place] Rate: 76 P: 63 NE: 147 QRS: 56 QRSD: 79 T: 35 QT: 392 QTc: 441 Interpretive Statements SINUS RHYTHM us Luis Felipe OLSON MD PROCEDURES-ORDERAB LE NO CHARGE Final Result [facility] * US BREAST RT BIRAD LTD (10/01/2024 1:28 PM CDT) Anatomical Region Laterality Modality Breast Right Ultrasound 10/01/2024 1:25 PM CDT Impressions 10/01/2024 1:27 PM CDT ===== IMPRESSION: ===== 1. No mammographic findings suggestive of malignancy. No imaging abnormality to correspond with the patient's palpable lump of the right breast. Assessment: ACR BI-RADS CATEGORY 2 - BENIGN FINDING(S) Recommendation: 1: Routine screening mammogram bilateral in 1 year Comments: Ordered By: ERMELINDA MARTINEZ Interpreted By: Domenic Chavira, 10/01/2024 1:25 PM Narrative 10/01/2024 1:27 PM CDT [facility] [place] [address] Examination: Diagnostic bilateral mammogram and right breast ultrasound [id number] Exam Date/Time: 10/01/2024 1:16 PM Reason For Exam: Palpable lump right upper outer quadrant Comparison: 05/06/2024, 11/18/2023 Technique: Bilateral diagnostic mammography and right breast ultrasound including sonographic grayscale images projections targeted in the region of interest. Doppler used to assess vasculature. 3D tomographic images were obtained. Tissue density: The breast tissue contains scattered fibroglandular densities. Findings: Mammogram: No suspicious microcalcification, architectural distortion, or mass. No mammographic abnormality to correspond with the palpable lump of the right upper outer quadrant. Rightbreast ultrasound: Area of interest 12:30 position approximately 14 cm from the nipple appears normal. No abnormal fluid collection or mass within this area. Procedure Note Domenic Chavira MD - 10/01/2024 [facility] [place] [address] Examination: Diagnostic bilateral mammogram and right breast ultrasound [id number] Exam Date/Time: 10/01/2024 1:16 PM Reason For Exam: Palpable lump right upper outer quadrant Comparison: 05/06/2024, 11/18/2023 Technique: Bilateral diagnostic mammography and right breast ultrasoundincluding sonographic grayscale images projections targeted in the regionof interest. Doppler used to assess vasculature. 3D tomographic images were obtained. Tissue density: The breast tissue contains scattered fibroglandulardensities. Findings: Mammogram: No suspicious microcalcification, architectural distortion, ormass. No mammographic abnormality to correspond with the palpable lump ofthe right upper outer quadrant. Rightbreast ultrasound: Area of interest 12:30 position approximately 14cm from the nipple appears normal. No abnormal fluid collection or masswithin this area. ===== IMPRESSION: ===== 1. No mammographic findings suggestive of malignancy. No imagingabnormality to correspond with the patient's palpable lump of the rightbreast. Assessment: ACR BI-RADS CATEGORY 2 - BENIGN FINDING(S) Recommendation: 1: Routine screening mammogram bilateral in 1 year Comments: Ordered By: ERMELINDA MARTINEZ Interpreted By: Domenic Chavira, 10/01/2024 1:25 PM us Ermelinda Martinez PRODUCT DEVELOPMENT ULTRASOUND Final Result * MG DIAG W SERGEY PEREZ (10/01/2024 1:12 PM CDT) Anatomical Region Laterality Modality Breast Bilateral Mammography 10/01/2024 1:25 PM CDT Impressions 10/01/2024 1:27 PM CDT ===== IMPRESSION: ===== 1. No mammographic findings suggestive of malignancy. No imaging abnormality to correspond with the patient's palpable lump of the right breast. Assessment: ACR BI-RADS CATEGORY 2 - BENIGN FINDING(S) Recommendation: 1: Routine screening mammogram bilateral in 1 year Comments: Ordered By: ERMELINDA MARTINEZ Interpreted By: Domenic Chavira, 10/01/2024 1:25 PM Narrative 10/01/2024 1:27 PM CDT [facility] [place] [address] Examination: Diagnostic bilateral mammogram and right breast ultrasound [id number] Exam Date/Time: 10/01/2024 1:16 PM Reason For Exam: Palpable lump right upper outer quadrant Comparison: 05/06/2024, 11/18/2023 Technique: Bilateral diagnostic mammography and right breast ultrasound including sonographic grayscale images projections targeted in the region of interest. Doppler used to assess vasculature. 3D tomographic images were obtained. Tissue density: The breast tissue contains scattered fibroglandular densities. Findings: Mammogram: No suspicious microcalcification, architectural distortion, or mass. No mammographic abnormality to correspond with the palpable lump of the right upper outer quadrant. Rightbreast ultrasound: Area of interest 12:30 position approximately 14 cm from the nipple appears normal. No abnormal fluid collection or mass within this area. Ermelinda Martinez PRODUCT DEVELOPMENT MAMMO Final Result * COLONOSCOPY GENERIC (SCAN ORDER) (06/25/2022) 06/25/2022 [facility] Scanned SCANNING Final Resu lt from Last 3 Months or Most Recently Relevant to Health Maintenance Insurance Care Teams All Round Logger Relationship Specialty Start Date End Date Luis Felipe Chahal MD [address] [facility], [address] [address] PCP - General FAMILY PRACTICE 11/05/23
--- OUTSIDE RECORDS SUMMARY | 2024-12-26 10:05 | XMS_ITS | Encounter Summary ---
Author Organization [facility] Address [facility] [place] [address] Care Team Providers Care Feed Blender Name Role Phone Carlos Chahal MD Primary Care Prov ider Encounter Details Date Type Department Care Team (Late st Contact Info) Description 06/30/2024 Soceaniqt Message Enc [facility] Family Medicine - [address], [address] [place] [phone] Carlos Chahal MD [address] [place] [address], Jose Miguel [address] [place] [phone] Possible allergy Social History Tobacco Use Types Packs/Day Years [...] Sex Assigned at Female 04/01/2024 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 Legal Sex Female 2:03 PM CDT Gender Identity Not on file Sexual Orientation Not on file documented as of this encounter Plan of Treatment Not on file documented as of this encounter Visit Diagnoses Diagnosis Urge incontinence- Primary documented in this encounter Additional Health Concerns Assessment Noted Time PHQ-9 Depression Total Score: 0 02/03/20 25 7:51 AM CONCRETE HANDLER documented as of this encounter Care Teams Feed Blender Relationship Specialty Start Date End Date Luis VII, Carlos Malagon MD [address] [place] [id number] PCP - General FAMILY PRACTICE 11/05/23 documented as of this encounter
--- OUTSIDE RECORDS SUMMARY | 2024-12-26 10:05 | XMS_ITS | Encounter Summary ---
Author Organization [facility] Address [facility] [place] [address] Care Team Providers Care Metal Hanger Name Role Phone Carlos Chahal MD Primary Care Prov ider Reason for Referral * Imaging (Routine) - New Request Specialty Diagnoses / Procedures Referred By Contac t Referred To Contact RADIOLOGY Diagnoses Exertional dyspnea Procedures NM EXER NUC STRESS TEST 1DAY Raman Hogan MD [facility], [address] [place] [address] Phone: tel: fax: Referral ID Status Reason Start Date Expiration Date V isits Requested Visits Authorized [id number] New Request 12/24/2024 12/24/2025 1 1 * Procedure (Routine) - New Request Specialty Diagnoses / Procedures Referred By Contac t Referred To Contact Diagnoses Exertional dyspnea Procedures Cardiology Stress Test Only, Exercise Raman Hogan MD [facility], [address] [place] [address] Phone: tel: fax: Referral ID Status Reason Start Date Expiration Date V isits Requested Visits Authorized [id number] New Request 12/24/2024 12/24/2025 1 1 Encounter Details Date Type Department Care Team (Late st Contact Info) Description 12/24/2024 Orders Only [facility], [address] [place] [address] Raman Hogan MD [facility] [address] [place] [address] Social History Tobacco Use Types Packs/Day Years [...] Sex Assigned at Female 04/01/2024 11:55 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 Legal Sex Female 2:03 PM CDT Gender Identity Not on file Sexual Orientation Not on file documented as of this encounter Plan of Treatment Scheduled Orders Name Type Priority Associated Diagnoses Orde r Schedule Cardiology Stress Test Only, Exercise Cardiac Services Routine Exertional dyspnea Expected: 12/24/2024 (Approximate), Expires: 12/24/2025 NM EXER NUC STRESS TEST 1DAY NUC MED Routine Exertional dyspnea Expected: 12/24/2024 (Approximate), Expires: 12/24/2025 documented as of this encounter Visit Diagnoses Diagnosis Exertional dyspnea- Primary Other dyspnea and respiratory abnormality documented in this encounter Additional Health Concerns Assessment Noted Time PHQ-9 Depression Total Score: 0 04/05/19 25 7:51 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 documented as of this encounter Care Teams Metal Hanger Relationship Specialty Start Date End Date Carlos Chahal MD [address] [place] [address], [facility] [address] [place], [place] [id number] PCP - General FAMILY PRACTICE 11/05/23 documented as of this encounter
--- OUTSIDE RECORDS SUMMARY | 2024-12-26 10:05 | XMS_ITS | Data Portability ---
Author Organization [facility] [place] Address [address] [place] [address] Care Team Providers Care Aircraft Manager Name Role Phone CHUTABATHA SANTANA Primary Care Provider [phone] Assessment Encounter Date Assessment Date Assessment LastModified by Organization Details LastModified Time 01/15/2024 01/15/2024 Annual gynecological exam performed. Patient will come back in a year unless there are new symptoms. [email or web address] Not available 01/12/2024 12:33:15 Plan of Treatment Reminders Order Date Submit Date Provider Last Modified By Organization Details Last Modified Time Details Appointments None recorded. Lab pap, IG + HR HPV - HPV regardless but if HPV is positive need subtyping 16,18/45 2023 024 [facility] (Lab), [address] [place], [address], 4 17:08:11 Referral None recorded. Procedures None recorded. Surgeries None recorded. Imaging US, breast, unilateral 2024 025 [facility], [address], [address], [place], [address], 5 15:09:41 MAMMO, diagnostic, digital, bilateral - 1 cm right breast mass noted at 11 o'clock in upper, outer breast 2024 025 [facility], [address], [address], [place], [address], 5 15:12:29 Medication Orders None recorded. Patient TargetsNo targets recorded. Patient InstructionsNo instructions recorded. Reason for Referral None Reported. 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 Sarah bowman d by Noemi Beaulieu ret, CT on 01/22 at 4:02 PM ----- ----- ----- ----- ----- ----- ----- ----- ----- ----- ----- ----- ----- ----- ----- ----- ----- ---- HPV RESUL TS: HPV mRNA E6/E7 : No HPV mRNA Detec ruthy NOTE: This high risk HPV mRNA assay detec ts fourt een high- risk HPV types (16, 18, 31, 33, 35, 39, 45, 51, 52, 56, 58, 59, 66, 68) witho ut diffe renti ation . COMME NT: This speci men was revie wed by a Cytot echno logis t and/o r Patho logis t (as indic ated in this repor t) after evalu ation using the Thinp rep Imagi ng Syste m. CLINI KRYSTAL INFOR MATIO N: Menst rual Statu s: LMP (if appli cable ): Clini krystal Histo ry/Pr eviou s Pap: Type of Neopl jacy (if appli cable ): Signi fican t Clini krystal Findi ngs: Other Histo ry: Hormo karina (if appli cable ): PAP EDUCA DANDY L NOTE: The Pap Test is a scree annie test with an inher ent false negat nila rate. Liqui d-bas ed sampl ing may decre ase, but will not elimi shanna, false negat nila resul ts. A negat nila resul t does not precl ude the prese nce and/o r devel opmen t of disea se, since the prese nce of abnor mal cells in the sampl e depen ds on the locat ion of the lesio n and sampl ing techn ique. Kimmy nued regul ar scree annie is the best metho d of cance r preve ntion . If repor ruthy cytol ogic findi ng do not corre late with physi krystal and/o r histo rical findi ngs, furth er inves tigat ion is recom gerardo d, as clini gary partida nted. Not Available [facility] (Lab) [address], [place], [address], 01/23/2024 17:08:11 10/02/19 25 10/01/2024 MAMMO , diagn ostic , digit al, bilat eral No observ ation record ed. [address], [place], [address], 10/04/2024 11:53:08 10/02/19 25 10/01/2024 US, mariajosekandace wendy castro No observ ation record ed. [email or web address] [address], [place], [address], 10/04/2024 11:53:09 Result Notes None recorded. Procedures Surgical History Date Name Laterality Status Provider Name and Address Organization Details Recorded Time 01/15/20 24 Date of Last Pap Smear completed [facility] 09/15/2024 15:20:46 11/02/19 24 Date of Last Mammogram completed [facility] 01/15/2024 15:00:14 06/02/19 [address] [facility] 01/15/2024 15:22:19 03/03/19 [address] [facility] 01/15/2024 15:22:08 07/26/18 91 Caesarean Section completed [facility] 01/15/2024 15:00:[address] [facility] 01/15/2024 15:21:46 Imaging Results None recorded. Procedure Notes None recorded. Medical Equipment None Reported. Allergies Allergen ID Allergen Name Allergen Category Reaction Reaction Severity Criticality Documentation Date Start Date Code Code System Note Provider Name and Address Organization Details Recorded Time 80220 ampicilli n medicatio n hives severe Not available 01/15/[address] [facility] 15:00:14 Medications Name Sig Start Date Stop Date Status Note LastModified by Organization Details LastModified Time cyclobenzap rine 10 mg tablet Take 1 tablet BY MOUTH AT BEDTIME 01/14 completed Not Available Not Available Not Available azithromyci n 250 mg tablet TAKE 2 TABLETS BY MOUTH FOR 1 DAY THEN TAKE 1 TABLET BY MOUTH DAILY FOR 4 DAYS 09/11 completed Not Available Not Available Not Available ondansetron HCl 4 mg tablet active Not Available Not Available Not Available prednisone 20 mg tablet Take 1 tablet BY MOUTH TWICE DAILY 01/14 completed Not Available Not Available Not Available clonazepam 0.5 mg tablet Take 1 tablet BY MOUTH EVERY DAY 01/14 completed Not Available Not Available Not Available amoxicillin 875 mg tablet Take 1 tablet BY MOUTH TWICE DAILY 12/07 completed Not Available Not Available Not Available prednisolon e acetate 1 % eye drops,suspe nsion SHAKE WELL AND INSTILL 1 DROP IN EACH EYE every 4 hours WHILE AWAKE FOR 1 WEEK, THEN TWICE DAILY FOR 4 DAYS, THEN ONCE DAILY UNTIL NEXT VISIT 12/07 completed Not Available Not Available Not Available baclofen 10 mg tablet Take 1 tablet BY MOUTH every 8 hours as needed for MUSCLE SPASM 01/14 completed Not Available Not Available Not Available erythromyci n 5 mg/gram (0.5 %) eye ointment APPLY IN AFFECTED EYE(S) ONCE DAILY 01/14 completed Not Available Not Available Not Available lisinopril 10 mg tablet Take 1 tablet BY MOUTH EVERY DAY active Not Available Not Available No t Available albuterol sulfate HFA 90 mcg/actuati on aerosol inhaler INHALE 2 PUFFS BY MOUTH FOUR TIMES DAILY NEEDED 09/15 completed Not Available Not Available Not Available ondansetron 4 mg disintegrat ing tablet DISSOLVE 1 TABLET BY MOUTH EVERY 6 HOURS as needed for NAUSEA AND VOMITING 01/14 completed Not Available Not Available Not Available fluticasone propionate 50 mcg/actuati on nasal spray,suspe nsion SHAKE LIQUID AND USE 2 SPRAYS IN EACH NOSTRIL DAILY 09/15 completed Not Available Not Available Not Available naproxen 500 mg tablet Take 1 tablet BY MOUTH EVERY 8-12 HOURS as needed for pain 01/14 completed Not Available Not Available Not Available bupropion HCl XL 150 mg 24 hr tablet, extended release Take 1 tablet BY MOUTH EVERY DAY active Not Available Not Available No t Available duloxetine 20 mg capsule,del ayed release active Not Available Not Available Not Available duloxetine 30 mg capsule,del ayed release TAKE 1 CAPSULE BY MOUTH EVERY DAY 09/15 completed Not Available Not Available Not Available mirabegron ER 25 mg tablet,exte nded release 24 hr active Not Available Not Available Not Available Vitals Date Recorded Body height Body mass index (BMI) Body weight Systolic And Diastolic Provider Name and Address Organization Details Last Updated DateTime 09/15/2024 167.64 cm 26.6 kg/m2 25549.74 g 121/77 mm[Hg] Tanisha Elena [facility] 09/15/2024 15:21:46 Date Recorded Body height Body mass index (BMI) Body weight Systolic And Diastolic Provider Name and Address Organization Details Last Updated DateTime 01/15/2024 167.64 cm 29.5 kg/m2 15846.4 g 153/86 mm[Hg] [facility] 01/15/2024 15:18:14 Social History Question Answer Notes LastModified by Organizat ion Details LastModified Time Tobacco Smoking Status Current Some Day [facility]24 15:21:16 Do You Have An Advance Directive? No [email or web address] Information n ot available 01/15/2024 How Many Years Have You Consumed Alcohol? 40 [email or web address] Information not available 01/15/2024 Are You Blind Or Do You Have Difficulty Seeing? No [email or web address] Information n ot available 01/15/2024 What Is Your Level Of Caffeine Consumption? Moderate [email or web address] Information not available 01/15/2024 How Much Tobacco Do You Chew? None [email or web address] Information not available 01/15/2024 In The 14 Days Before Symptom Onset, Have You Had Close Contact With A Laboratory-confirm ed COVID-19 While That Case Was Ill? No [email or web address] Information n ot available 01/15/2024 In The 14 Days Before Symptom Onset, Have You Had Close Contact With A Person Who Is Under Investigation For COVID-19 While That Person Was Ill? No Information not available 01/15/2024 Have You Been To An Area Known To Be High Risk For COVID-19? No [email or web address] Information not available 01/15/2024 Are You Deaf Or Do You Have Serious Difficulty Hearing? No [email or web address] Information not available 01/15/2024 What Type Of Diet Are You Following? REGULAR [email or web address] Information n ot available 01/15/2024 What Is The Highest Grade Or Level Of School You Have Completed Or The Highest Degree You Have Received? [id number] [email or web address] Information not available 01/15/2024 Are There Any Guns Present In Your Home? Yes [email or web address] Information not available 01/15/2024 Do You Use Protection During Sex? No [email or web address] Information not available 01/15/2024 Do You Use Your Seat Belt Or Car Seat Routinely? Yes [email or web address] Information not available 01/15/2024 Are You Sexually Active? Yes [email or web address] Information not available 01/15/2024 Do You Have Smoke And Carbon Monoxide Detectors In Your Home? Yes [email or web address] Information not available 01/15/2024 At What Age Did You Start Smoking Tobacco? 16 [email or web address] Information not available 01/15/2024 How Much Tobacco Do You Smoke? No [email or web address] Information not available 09/15/2024 Do You Use Sunscreen Routinely? Yes [email or web address] Information not available 01/15/2024 How Many Years Have You Smoked Tobacco? 40 [email or web address] Information not available 01/15/2024 Have You Used IV Drugs? No [email or web address] Information not available 01/15/2024 Do You Have Difficulty Walking Or Climbing Stairs? No [email or web address] Information not available 01/15/2024 Sex: Unknown Functional Status Question Answer Note LastModified by Organizat ion Details LastModified Time Do you use any illicit or recreational drugs? Yes [email or web address] Information not available 01/15/2024 What is your level of alcohol consumption? Moderate Information not available 01/15/2024 Are you currently employed? No [email or web address] Information not available 01/15/2024 Are you able to walk independently without assistance or assistive devices? YESWOREST [email or web address] Information not available 01/15/2024 Are you able to care for yourself independently? 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 No [email or web address] Information not available 01/15/2024 What is your exercise level? Occasional [email or web address] Information not available 01/15/2024 Mental Status Question Answer Note LastModified by Organization D etails LastModified Time Do you feel stressed (tense, restless, nervous, or anxious, or unable to sleep at night)? [id number] [email or web address] Information not available 01/15/2024 Family History Relationship Description Onset Age of this Age Resolved Age Notes LastModified by Organization Details LastModified Time Mother Malignant neoplasm of breast [email or web address] Not available 2023 15:00:14 Maternal Aunt Malignant neoplasm of breast [email or web address] Not available 2023 15:00:14 Medical History Condition Response Anxiety Disorder Y Arthritis Y High Cholesterol Y Gynecological History Statement/Question Response Date of Last Mammogram 11/02/2023 Date of LMP 08/01/2018 On BCP's at Conception? N N Was last menstrual period normal Y STIs/STDs Yes HPV Vaccine N Current Control Method Partner Vas ectomy Age at First Child 21 If Post Menopausal, Age at Menopause 52 Sexually Active? Y Age of first menstrual cycle 14 Date of Last Pap Smear 01/15/2024 Sexual Problems? N LMP Approximate N Obstetrics History GPAL:G 3 P 3 0 0 3 Type Value Full Term 3 Living 3 Total 3 Past Encounters Encounter ID Performer Location Encounter Start Date Encounter Closed Date Diagnosis/Indication Diagnosis SNOMED-CT Code Diagnosis ICD10 Code Diagnosis IMO Codes Diagnosis Note [id number] Bryan Jhaveri MD [place] [address] [address] 01/15/2024 14:58:13 01/15/2024 16:12:57 Gynecologic examination 69498268 Z01.419 Annual gynecologi krystal exam performed. Patient will come back in a year unless there are new symptoms. Suggest Calcium with Vitamin D if not eating in diet. Patient advised to get annual flu shot. Recommend yearly physicals and perform monthly breast exams. Genetic testing is available for patients with family history of cancer. Engage in safe sexual practices, use condoms. Encouraged to have daily exercise. Avoid tobacco and illicit drugs, moderation of alcohol. If BMI greater than 25 dietary consult advised. If you have any questions please call or email. mammogram- UTD (11/2023 - WNL), alternates MRI and screening mammogram every 6 months d/t FH of breast cancer (mom and maternal aunt)Infor mation of [employer] hereditary cancer screening given. colon cancer screening - UTD PCP DEXA scan- n/a Pap smear- pap w/ HPV collected laboratory evaluation - PCP STI testing - declined [id number] Bryan Jhaveri MD [place] [address] [address] 09/15/2024 15:13:40 09/15/2024 15:45:20 Lump in upper outer quadrant of right breast [id number] 81554 N63.11 [id number] We discussed her breast exam findings and pt is counseled. Questions answered. Imaging: diagnostic bilateral mammogram ordered w/ right breast ultrasound Order given, pt to schedulePa tient advised to perform self-breas t exams and report any changes. 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 For vaginal bleeding, patient reportshistory of menopause having occurredandno history of post menopausal bleeding. For urinary symptoms, patient reportsno hematuria,no incontinence,no nocturia, andno urinary frequency. For vulva, patient reportsno genital lesionandno vulvar atrophy. For vagina, patient reportsnormal vaginal dischargeandno vaginal atrophy.Breast symptomsFor breast, patient reportsno breast lump,no nipple discharge, andno breast pain.Psychological symptomsFor sexual complaints, patient reportsno sexual complaints. For psychological symptoms, patient reportsno depressionandno anxiety.Preventative measuresFor preventive measures, patient reportsencourage regular mammograms starting age 40,encourage self breast examination,encourage regular exercise,encourage no tobacco use,mammogram performed within the past year, andhistory of recent colonoscopy. New patient presents to establish care. ERMELINDA SALAMANCA NP [address], [place], [address], [place] [facility] 01/15/2024 16:11:32 5 text/html 58 y/o female presents with c/o right breast lump.Patient states that she noticed breast lump last week, denies change in size since then.Denies breast pain, tenderness, skin changes, or nipple discharge.FH of breast cancer (mother and maternal aunt) - states that she is UTD on her mammograms (May 2024) and alternates MRI and screening mammogram every 6 months ERMELINDA SALAMANCA NP [address], [place], [address], [facility] 09/15/2024 15:43:41 OBGyn Episode Ob Episode Information Episode Created Date Number of Fetuses Patient Bloodtype Patient rh Status Prepregnancy Weight lbs Domestic Partner Domestic Partner Phone Father Name Knife Operator Status 01/15/20 24 1 CLOSED Fetus Data First Name Last Name Admitted to NICU Weight (g) Sex Living Outcome Pediatric Complications Fetus ID Race Codes Race Delivery Type 3146.56 7704 F Full Term [id number] Primary Austin Calculation Initial Austin Date Initial Exam Date Initial Exam Provider Initial Ultrasound Date Last Menstrual Period Date Ultra Sound Weeks Gestation 0 Eighteen To Twenty Week Austin Update Ultra Sound Date Fundal Height At Umbil Quickening Date Ultra Sound Latest Weeks Gestation Final [place] Confirmed By Final Austin Confirmed Date Final Austin Date Ultra Sound Latest Days Gestation 0 0 Menstrual History Last Menstrual Date Menses Monthly On Bcp Conception Prior Menses Frequency Hcg Plus Date Menarche Onset Age Delivery Information Delivery Date Delivery Type Labor Anesthesia Weeks Gestation Incision Type Labor Labor Length Hrs Delivered By Post Complications Tubal Sterilization Discharge Date Comments 1 40 Discharge Information Feeding Method Contraceptive Method Maternal HG B and HCT Levels Ob Episode Information Episode Created Date Number of Fetuses Patient Bloodtype Patient rh Status Prepregnancy Weight lbs Domestic Partner Domestic Partner Phone Father Name Knife Operator Status 01/15/20 24 1 CLOSED Fetus Data First Name Last Name Admitted to NICU Weight (g) Sex Living Outcome Pediatric Complications Fetus ID Race Codes Race Delivery Type 3175.14 4 M Full Term [id number] Vaginal Delivery Austin Calculation Initial Austin Date Initial Exam Date Initial Exam Provider Initial Ultrasound Date Last Menstrual Period Date Ultra Sound Weeks Gestation 0 Eighteen To Twenty Week Austin Update Ultra Sound Date Fundal Height At Umbil Quickening Date Ultra Sound Latest Weeks Gestation Final [place] Confirmed By Final Austin Confirmed Date Final [place] Date Ultra Sound Latest Days Gestation 0 0 Menstrual History Last Menstrual Date Menses Monthly On Bcp Conception Prior Menses Frequency Hcg Plus Date Menarche Onset Age Delivery Information Delivery Date Delivery Type Labor Anesthesia Weeks Gestation Incision Type Labor Labor Length Hrs Delivered By Post Complications Tubal Sterilization Discharge Date Comments 8 40 Discharge Information Feeding Method Contraceptive Method Maternal HG B and HCT Levels Ob Episode Information Episode Created Date Number of Fetuses Patient Bloodtype Patient rh Status Prepregnancy Weight lbs Domestic Partner Domestic Partner Phone Father Name Knife Operator Status 01/15/20 24 1 CLOSED Fetus Data First Name Last Name Admitted to NICU Weight (g) Sex Living Outcome Pediatric Complications Fetus ID Race Codes Race Delivery Type 3146.56 7704 F Full Term [id number] Primary Austin Calculation Initial Austin Date Initial Exam Date Initial Exam Provider Initial Ultrasound Date Last Menstrual Period Date Ultra Sound Weeks Gestation 0 Eighteen To Twenty Week Austin Update Ultra Sound Date Fundal Height At Umbil Quickening Date Ultra Sound Latest Weeks Gestation Final [place] Confirmed By Final [place] Confirmed Date Final [place] Date Ultra Sound Latest Days Gestation 0 0 Menstrual History Last Menstrual Date Menses Monthly On Bcp Conception Prior Menses Frequency Hcg Plus Date Menarche Onset Age Delivery Information Delivery Date Delivery Type Labor Anesthesia Weeks Gestation Incision Type Labor Labor Length Hrs Delivered By Post Complications Tubal Sterilization Discharge Date Comments 5 40 Discharge Information Feeding Method Contraceptive Method Maternal HG B and HCT Levels
--- OUTSIDE RECORDS SUMMARY | 2024-12-26 10:05 | XMS_ITS | Encounter Summary ---
Author Organization [facility] Address [facility] [place] [address] Care Team Providers Care Geographic Information Systems Director Name Role Phone Carlos Chahal MD Primary Care Prov ider Encounter Details Date Type Department Care Team (Late st Contact Info) Description 11/20/2024 Results Follow-Up 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 Legal Sex Female 2:03 PM CDT Gender Identity Not on file Sexual Orientation Not on file documented as of this encounter Plan of Treatment Not on file documented as of this encounter Visit Diagnoses Not on filedocumented in this encounter Additional Health Concerns Assessment Noted Time PHQ-9 Depression Total Score: 0 04/05/19 25 7:51 AM 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
--- OUTSIDE RECORDS SUMMARY | 2024-12-26 10:05 | XMS_ITS | Encounter Summary ---
Author Organization [facility] Address [address] [place] [address] Phone Care Team Providers Care Customs And Border Protection Officer Name Role Phone Roldan Mosher MD Primary Care Provider + Encounter Details Date Type Department Care Team (Late st Contact Info) Description 10/02/[address] 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
[2024-12-26 10:16] LABS: Alanine Aminotransferase 24 U/L (6-35); Albumin Level 4.5 g/dL (3.5-5.1); Alkaline Phosphatase 55 U/L (38-126); Anion Gap 10 mmol/L (4-12); Aspartate Amino Transferase 29 U/L (14-36); Bilirubin,Total 0.4 mg/dL (0.2-1.3); Blood Urea Nitrogen 19 mg/dL (7-17); Calcium 9.0 mg/dL (8.4-10.2); Carbon Dioxide 24 mmol/L (22-30); Chloride 105 mmol/L (98-107); Estimated CRCL calculation 81 ml/min; Estimated Glomerular Filt Rate > 60; Glucose 109 mg/dL (65-110); Potassium 4.5 mmol/L (3.4-5.0); Sodium 139 mmol/L (137-145); Total Protein 7.3 g/dL (6.3-8.2)
[2024-12-26 10:27] LABS: Troponin I < 0.012 ng/mL (0.000-0.034)
[2024-12-26] MEDS: MECLIZINE HCL 25 MG TABLET PO (10:38)
--- NOTE | 2024-12-26 12:09 | ED.GENADULT ---
HPI - General Adult General Chief complaint: Neuro Symptoms/Deficit Stated complaint: L arm numb, dizzy since yest, abnormal stress test Time Seen by Provider: 12/26/24 09:46 History of Present Illness HPI narrative: Patient is a 59-year-old female who presents ER with dizziness. Ongoing 2 days. Worse when she is moving around. No nausea or diaphoresis. Today she had an argument with her daughter and was crying developed some tingling in her left arm. No chest pain. Patient has been under stress because she recently had an equivocal stress test and needs to have imaging performed. No known heart disease. No focal weakness to an arm or leg. Her tingling lasted 5 minutes. Patient has mild headache over last 2 days as well. Related Data Home Medications ?Medication ?Instructions ?Recorded ?Confirmed ?Last Taken ?Type bupropion HCl 75 mg tablet 75 mg PO DAILY 12/26/24 12/26/24 Unknown History duloxetine 20 mg capsule,delayed 20 mg PO DAILY 12/26/24 12/26/24 Unknown History release (Cymbalta) lisinopril 5 mg tablet 5 mg PO DAILY 12/26/24 12/26/24 Unknown History mirabegron 25 mg tablet,extended 25 mg PO DAILY 12/26/24 12/26/24 Unknown History release 24 hr Allergies Allergy/AdvReac Type Severity Reaction Status Date / Time ampicillin Allergy Intermediate Rash Verified 12/26/24 09:43 Review of Systems Review of Systems: All systems reviewed & are unremarkable except as noted in HPI and below Constitutional: Constitutional: Reports no additional constitutional complaints ENT: Reports system reviewed and no additional complaints, except as documented Cardiovascular: Cardiovascular: Reports no additional cardiovascular complaints Respiratory: Respiratory: Reports no additional respiratory complaints Gastrointestinal: Gastrointestinal: Reports no additional gastrointestinal complaints Neurologic: Reports system reviewed and no additional complaints, except as documented PMFSH Past Medical History Medical History (Updated 12/26/24 @ 13:35 by James Mccall MD) Depression Hypertension Surgical History Surgical History (Updated 12/26/24 @ 13:34 by James Mccall MD) No pertinent past surgical history Exam Narrative: GENERAL: Well-appearing, well-nourished, and in no acute distress. HEAD: Normocephalic, atraumatic. Eyes: PERRLA, EOMI ENT: Mucous membranes moist. TMs normal bilaterally. CHEST: Clear to auscultation. No respiratory distress. HEART: Regular rate and rhythm. Normal peripheral pulses. ABDOMEN: Soft, nontender, nondistended. EXTREMITIES: Normal range of motion. No edema. SKIN: Warm, dry, no rash. NEURO: Alert and oriented x3. Clear speech without expressive aphasia or dysarthria. No facial droop. PSYCH: Normal mood and affect. Course Course Emergency Course: Dizziness improving with meclizine. No chest pain here. Troponin negative x2. Vital Signs Vital signs: Vital Signs Pulse Rate 76 12/26/24 09:27 Respiratory Rate 17 12/26/24 09:27 Blood Pressure 181/84 H 12/26/24 09:27 Pulse Oximetry 100 12/26/24 09:27 Temperature 98.2 F 12/26/24 09:31 Pulse Rate 71 12/26/24 11:30 Respiratory Rate 19 12/26/24 11:30 Blood Pressure 157/91 H 12/26/24 11:30 Pulse Oximetry 100 12/26/24 11:30 Oxygen Delivery Room Air 12/26/24 09:31 Medical Decision Making Vital Signs Vital Signs: Vital Signs Pulse Rate 76 12/26/24 09:27 Respiratory Rate 17 12/26/24 09:27 Blood Pressure 181/84 H 12/26/24 09:27 Pulse Oximetry 100 12/26/24 09:27 Temperature 98.2 F 12/26/24 09:31 Pulse Rate 71 12/26/24 11:30 Respiratory Rate 19 12/26/24 11:30 Blood Pressure 157/91 H 12/26/24 11:30 Pulse Oximetry 100 12/26/24 11:30 Oxygen Delivery Room Air 12/26/24 09:31 Lab Data 12/26/24 09:37 12/26/24 09:37 Labs: Lab Results 12/26/24 12/26/24 12/26/24 Range/Units 09:34 09:37 12:40 WBC 6.3 (4.5-10.0) K/mm3 RBC 4.29 (4.2-5.4) M/mm3 Hgb 13.2 (12.0-15.0) g/dL Hct 39.7 (37.0-47.0) % MCV 92.5 (80-100) fl MCH 30.8 (26-34) pg MCHC 33.2 (32-36) g/dl RDW 13.2 (11.5-14.5) % Plt Count 205 (150-375) k/mm3 MPV 9.6 (7.4-10.4) fl Immature Gran % (Auto) 0.5 (0-0.5) % Neut % (Auto) 49.7 (45.5-73.1) % Lymph % (Auto) 34.0 (18.3-44.2) % [place] % (Auto) 9.8 H (2.6-8.5) % Eos % (Auto) 5.5 H (0-4.4) % Baso % (Auto) 0.5 (0.2-1.2) % Lymph # (Auto) 2.15 (0.9-3.2) K/mm3 [place] # (Auto) 0.6 (0.1-0.6) K/mm3 Eos # (Auto) 0.4 H (0-0.3) K/mm3 Baso # (Auto) 0.0 (0.0-0.1) K/mm3 Abs Immat Gran (auto) 0.03 (0.00-0.031) K/mm3 Absolute Neuts (auto) 3.2 (1.3-6.7) K/mm3 Absolute Nucleated RBC 0.000 (0.0-0.012) K/mm3 Nucleated RBC % 0.0 (0.0-0.2) % PT 11.9 (11.1-14.7) Seconds INR 0.9 APTT 24.0 (22.3-36.8) Seconds Sodium 139 (137-145) mmol/L Potassium 4.5 (3.4-5.0) mmol/L Chloride 105 (98-107) mmol/L Carbon Dioxide 24 (22-30) mmol/L Anion Gap 10 (4-12) mmol/L BUN 19 H (7-17) mg/dL Creatinine 0.69 L (0.7-1.0) mg/dL Estim Creat Clear Calc 81 ml/min Estimated GFR > 60 (59 - ) Glucose 109 (65-110) mg/dL POC Capillary Glucose 99 (65-105) mg/dl Calcium 9.0 (8.4-10.2) mg/dL Total Bilirubin 0.4 (0.2-1.3) mg/dL AST 29 (14-36) U/L ALT 24 (6-35) U/L Alkaline Phosphatase 55 (38-126) U/L Troponin I < 0.012 < 0.012 (0.000-0.034) ng/mL Total Protein 7.3 (6.3-8.2) g/dL Albumin 4.5 (3.5-5.1) g/dL Imaging Data Radiologist's impression: ITS Impressions Chest X-Ray 12/26/24 10:25 IMPRESSION: 1. No acute cardiopulmonary findings given portable technique. Head CT 12/26/24 11:50 IMPRESSION: 1. No acute intracranial findings. ECG Data EKG #1: ECG completion date: 12/26/24 ECG completion time: 09:37 EKG Interpretation: normal rate (80), sinus rhythm, no ST changes, normal QRS, normal QT and NL axis Discharge Plan Discharge Clinical Impression: Vertigo, Stress Patient Disposition: Home Condition: Stable Instructions: Vertigo (ED) Additional Instructions: Return ER if you have fever 100.4? F, you can not keep down food water, you lose consciousness, or you have additional concerns. Patient Language: Frisian Prescriptions: New meclizine 25 mg tablet 25 mg PO TID Qty: 20 0RF No Action lisinopril 5 mg tablet 5 mg PO DAILY bupropion HCl 75 mg tablet 75 mg PO DAILY Rx Instructions: administer 6 hours apart duloxetine [Cymbalta] 20 mg capsule,delayed release(DR/EC) 20 mg PO DAILY mirabegron 25 mg tablet extended release 24 hr 25 mg PO DAILY Follow-up/Referrals: Luis,Ramo Saul MD [Primary Care Provider, Unknown] - 1 Week
[2024-12-26 13:14] LABS: Troponin I < 0.012 ng/mL (0.000-0.034)
== END 2024-12-26 14:05 | disposition home or self-care (01) ==
PROVIDERS: Emergency Provider Emergency Medicine; PCP Family Medicine
DX: R42 Dizziness and giddiness (principal); F43.9 Reaction to severe stress, unspecified; F32.A Depression, unspecified; I10 Essential (primary) hypertension
CPT/HCPCS: 36415; 70450; 71045; 80053; 82948; 84484; 85025; 85610; 85730; 93005; 99284; A9270